=== PATIENT | female | born 1985 | race American Indian/Alaskan Native ===

== ENCOUNTER 2017-01-04 14:32 | Outpatient (CLI) | payer MEDICAID ==
[2017-01-04 16:15] LABS: Bacteria,Urine 1+ /HPF (Negative); Bilirubin,Urine NEG (Negative); Blood,Urine NEG (Negative); Ketones,Urine NEG (Negative); Leukocyte Esterase,Urine MOD (Negative); Mucus,Urine FEW /HPF; Nitrite,Urine NEG (Negative); Protein,Urine <15 mg/dL mg/dL (Negative); Urobilinogen,Urine < 2.0 mg/dL (<2.0)
[2017-01-04 17:12] LABS: Hemoglobin 10.3 gm/dl (10.1-14.3); Mean Corpuscular HGB Conc 34 % (30-34); Mean Corpuscular Hemoglobin 31 pg (28-32); Mean Corpuscular Volume 90 fl (79-97); Platelet Count 174 K/mm3 (140-440); Red Blood Count 3.32 M/mm3 (3.65-5.03); Red Cell Distribution Width 14.2 % (13.2-15.2); White Blood Count 8.8 K/mm3 (4.5-11.0)
[2017-01-04 17:23] LABS: Alanine Aminotransferase 10 units/L (7-56); Lactate Dehydrogenase 156 units/L (91-180); Uric Acid 4.5 mg/dL (3.5-7.6)
[2017-01-04 17:25] VITALS: BP 108/56
== END 2017-01-04 17:47 | disposition home or self-care (01) ==
LOC: TRG 14:32
PROVIDERS: ATTEND Obstetrics & Gynecology
DX: O47.03 False labor before 37 completed weeks of gestation, third trimester (principal); Z3A.36 36 weeks gestation of pregnancy
CPT/HCPCS: 36415; 59025; 81001; 82565; 83615; 84450; 84460; 84550; 85027

== ENCOUNTER 2017-02-13 04:35 | Inpatient (IN) | payer MEDICAID ==
--- NOTE | 2017-02-13 05:11 | History and Physical Report ---
History of Present Illness Date of examination: 02/13/17 Date of admission: 02/13/17 05:06 History of present illness: Presents to labor and delivery with c/o regular contraction initial cervical exam was 4 cm per RN Menstrual History Regularity: regular Menses every: 28 days Duration: 5 LMP: 05/06/2016 LMP reliability: definite LMP character: normal test type: urine test Date: 09/15/2016 BC at conception: none Planned ? yes EDC Calculations LMP: 02/10/2017 EDC Confirmation: 02/10/2017 Past History : 4 Term Births: 3 Premature Births: 0 Living Children: 3 Para: 3 Mult. Births: 0 Prev : 0 Prev. attempt? 0 Aborta: 0 Elect. Ab: 0 Spont. Ab: 0 Ectopics: 0 # 1 Delivery date: 2005 Weeks Gestation: term labor: no Delivery type: Anesthesia type: none Delivery location: [facility] Infant Sex: Male weight: 8#1 # 2 Delivery date: 2007 Weeks Gestation: term labor: no Delivery type: Anesthesia type: none Delivery location: [facility] Sex: Male weight: 7#1 # 3 Delivery date: 2008 Weeks Gestation: term labor: no Delivery type: Anesthesia type: none Delivery location: [facility] Infant Sex: Male weight: 6#0 Past Medical History: Negative Past Medical History Past Surgical History: negative Past Medical History Anesthesia Complications: negative Anemia: negative Autoimmune Disorder: negative Bleeding Disorder: negative Blood Transfusions: negative Breast Disease: negative Diabetes: negative Heart Disease: negative Hypertension: negative Hepatitis/Liver Disease: negative Kidney Disease/UTI: negative Neurologic/Epilepsy/Migraines: negative Phlebitis/Varicosities: negative Psychiatric: negative Pulmonary Disease/Asthma: negative Thyroid Disease: negative Hospitalizations: negative Surgery (Non-herbologist): negative Abnormal PAP: positive, >3 years ago, normal since TEMO Exposure: negative Infertility: negative Uterine Anomaly: negative Uterine Surgery (not C/S): negative Other Gynecologic Problems: negative Family Hx: Mother - CHTN Infection History Hx of STD: none HIV Risk Eval: low risk Hepatitis B Risk Eval: low risk Personal hx. of genital herpes: no Partner hx. of genital herpes: no Rash, Viral, or Febrile illness since last LMP? no Varicella/Chicken Pox Status: Previous Disease TB Risk: no Genetic History Congenital Heart Defect: Mom: no Dad: no Omkar Disease: Mom: no Dad: no Thalassemia Mom: no Dad: no Neural Tube Defect Mom: no Dad: no Down's Syndrome Mom: yes Dad: no Comments: pt's nephew Britany Mom: no Dad: no Sickle Cell Disease/Trait Mom: no Dad: no Hemophilia Mom: no Dad: no Muscular Dystrophy Mom: no Dad: no Cystic Fibrosis Mom: no Dad: no Eran Chorea Mom: no Dad: no Mental Retardation Mom: no Dad: no Fragile X Mom: no Dad: no Other Genetic/Chromosomal Disorder Mom: no Dad: no Child w/other defect Mom: no Dad: no Enviromental Exposures Xray Exposure: no Medication, drug, or alcohol use since LMP: no Chemical/Other Exposure: no Exposure to Cat Liter: no Hx of Parvovirus (Fifth Disease): no Occupational Exposure to Children: none Current Allergies: No known allergies Past History Past Medical History: other (See HPI) Past Surgical History: other (See HPI) 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 (See HPI) Family/Genetic History: other (See HPI) Social history: denies: other (See HPI) - Obstetrical History Expected Date of Delivery: 02/10/17 Actual Gestation: 40 Week(s) 3 Day(s) : 4 Para: 3 Hx # Term Pregnancies: 3 Number of Pregnancies: 0 Spontaneous Abortions: 0 Induced : 0 Number of Living Children: 3 Medications and Allergies Allergies Allergy/AdvReac Type Severity Reaction Status Date / Time shellfish derived AdvReac Swelling Verified 09/18/14 08:43 Home Medications Medication Instructions Recorded Confirmed Last Taken Type Cephalexin [Keflex] 500 mg PO Q6H #40 capsule 09/18/14 Unknown Rx Ibuprofen [Motrin] 600 mg PO Q8H PRN #40 tablet 09/18/14 Unknown Rx - Vital Signs Vital signs: Vital Signs Pulse BP 80 131/83 02/13/17 04:51 02/13/17 04:51 Temp Pulse Resp BP Pulse Ox 80 131/83 02/13/17 04:51 02/13/17 04:51 - Physical Exam Breasts: Positive: deferred Cardiovascular: Regular rate Abdomen: Positive: normal appearance Genitourinary (Female): Positive: normal external genitalia - Obstetrical FHR: category 1 Uterine Tone Measurement Phase: Contraction Uterine Contraction Intensity: Moderate Results All other labs normal. Assessment and Plan - Patient Problems (1) Active labor at term Current Visit: Yes Status: Acute Plan to address problem: Admit follow L&D protocol possible augmentation of labor. (2) 40 weeks gestation of Current Visit: Yes Status: Acute
[2017-02-13] MEDS ORDERED: LACTATED RINGERS 1,000 ML ONE (06:18)
[2017-02-13] MEDS ORDERED: STADOL ONE (06:20)
[2017-02-13] MEDS ORDERED: BRETHINE SUB-Q PRN ×2 (08:20→14:15)
[2017-02-13] MEDS ORDERED: XYLOCAINE 2% INFILTRATI ONE ×3 (08:20→14:15)
[2017-02-13] MEDS ORDERED: BRETHINE IVP PRN ×2 (08:20→14:15)
[2017-02-13] MEDS ORDERED: MINERAL OIL PO PRN ×2 (08:20→22:00)
[2017-02-13] MEDS ORDERED: ePHEDrine SULFATE IV PRN ×2 (08:20→14:15)
[2017-02-13] MEDS ORDERED: SUBLIMAZE IV PRN (08:20)
--- NOTE | 2017-02-13 08:33 | Progress Note ---
Assessment and Plan - Patient Problems (1) 40 weeks gestation of Current Visit: Yes Status: Acute (2) Active labor at term Current Visit: Yes Status: Acute Plan to address problem: -s/p SROM -anticipate Subjective - Subjective Date of service: 02/13/17 Principal diagnosis: 40 3/7 active labor Interval history: AROM done with clear fluid noted cx /-1. Pt tolerated procedure well. Declines epidural at this time but states pain is controlled with pain meds. Patient reports: movement normal, contractions, no new complaints, no loss of fluid Objective - Vital Signs Vital Signs: Vital Signs - 12hr 02/13/17 02/13/17 02/13/17 04:51 05:26 05:31 Temperature Pulse Rate 80 76 68 Pulse Rate [ Left From Monitor] Respiratory Rate Blood Pressure 131/83 Blood Pressure [Right Arm] O2 Sat by Pulse 99 100 Oximetry 02/13/17 02/13/17 02/13/17 05:36 05:41 05:46 Temperature Pulse Rate 76 68 70 Pulse Rate [ Left From Monitor] Respiratory Rate Blood Pressure Blood Pressure [Right Arm] O2 Sat by Pulse 100 100 99 Oximetry 02/13/17 02/13/17 02/13/17 05:51 05:56 06:01 Temperature Pulse Rate 65 80 73 Pulse Rate [ Left From Monitor] Respiratory Rate Blood Pressure Blood Pressure [Right Arm] O2 Sat by Pulse 100 100 100 Oximetry 02/13/17 02/13/17 02/13/17 06:06 06:11 06:16 Temperature Pulse Rate 76 73 72 Pulse Rate [ Left From Monitor] Respiratory Rate Blood Pressure Blood Pressure [Right Arm] O2 Sat by Pulse 99 100 99 Oximetry 02/13/17 02/13/17 02/13/17 06:21 06:26 06:28 Temperature Pulse Rate 70 83 77 Pulse Rate [ Left From Monitor] Respiratory Rate Blood Pressure Blood Pressure [Right Arm] O2 Sat by Pulse 100 100 88 Oximetry 02/13/17 02/13/17 02/13/17 06:31 06:34 06:36 Temperature Pulse Rate 80 78 Pulse Rate [ Left From Monitor] Respiratory 18 Rate Blood Pressure Blood Pressure [Right Arm] O2 Sat by Pulse 99 99 Oximetry 02/13/17 02/13/17 02/13/17 06:41 06:44 06:45 Temperature 97.7 F Pulse Rate 67 77 Pulse Rate [ 68 Left From Monitor] Respiratory 18 Rate Blood Pressure 110/63 Blood Pressure 110/63 [Right Arm] O2 Sat by Pulse 96 96 Oximetry 02/13/17 02/13/17 02/13/17 06:46 06:51 06:56 Temperature Pulse Rate 63 84 63 Pulse Rate [ Left From Monitor] Respiratory Rate Blood Pressure Blood Pressure [Right Arm] O2 Sat by Pulse 96 96 97 Oximetry 02/13/17 02/13/17 02/13/17 07:01 07:06 07:10 Temperature Pulse Rate 78 59 L 68 Pulse Rate [ Left From Monitor] Respiratory Rate Blood Pressure Blood Pressure [Right Arm] O2 Sat by Pulse 96 96 94 Oximetry 02/13/17 02/13/17 02/13/17 07:11 07:16 07:21 Temperature Pulse Rate 57 L 61 63 Pulse Rate [ Left From Monitor] Respiratory Rate Blood Pressure Blood Pressure [Right Arm] O2 Sat by Pulse 96 96 96 Oximetry 02/13/17 02/13/17 02/13/17 07:26 07:31 07:36 Temperature Pulse Rate 61 70 85 Pulse Rate [ Left From Monitor] Respiratory Rate Blood Pressure Blood Pressure [Right Arm] O2 Sat by Pulse 96 96 98 Oximetry 02/13/17 02/13/17 02/13/17 07:39 07:41 07:46 Temperature Pulse Rate 61 59 L 58 L Pulse Rate [ Left From Monitor] Respiratory Rate Blood Pressure Blood Pressure [Right Arm] O2 Sat by Pulse 94 95 97 Oximetry 02/13/17 02/13/17 02/13/17 07:51 07:56 08:00 Temperature 97.9 F Pulse Rate 66 65 Pulse Rate [ 65 Left From Monitor] Respiratory 18 Rate Blood Pressure Blood Pressure 110/63 [Right Arm] O2 Sat by Pulse 96 98 98 Oximetry 02/13/17 02/13/17 02/13/17 08:01 08:06 08:11 Temperature Pulse Rate 67 72 92 H Pulse Rate [ Left From Monitor] Respiratory Rate Blood Pressure Blood Pressure [Right Arm] O2 Sat by Pulse 96 98 98 Oximetry 02/13/17 02/13/17 02/13/17 08:16 08:21 08:25 Temperature Pulse Rate 62 104 H 82 Pulse Rate [ Left From Monitor] Respiratory Rate Blood Pressure Blood Pressure [Right Arm] O2 Sat by Pulse 99 98 88 Oximetry 02/13/17 08:26 Temperature Pulse Rate 82 Pulse Rate [ Left From Monitor] Respiratory Rate Blood Pressure Blood Pressure [Right Arm] O2 Sat by Pulse 98 Oximetry - Exam Cardiovascular: Normal S1, Normal S2 Lungs: Clear to auscultation Abdomen: Present: normal appearance, soft FHR: category 1 Cervical Dilatation: 7.5 (AROM clear fluid) Cervical Effacement Percentage: 90 station: -1 Uterine Contraction Pattern: Regular Uterine Tone Measurement Phase: Resting Uterine Contraction Intensity: Moderate Deep Tendon Reflex Grade: Normal +2
[2017-02-13] MEDS ORDERED: PITOCin/NS 30 UNIT/500ML 30 UNITS/500 ML BAG IV SCH (09:00)
[2017-02-13] MEDS ORDERED: PITOCin/NS 20 UNIT/1000ML DRIP 20 UNITS/1,000 ML BAG IV SCH ×2 (09:00→14:15)
[2017-02-13] MEDS ORDERED: LACTATED RINGERS 1,000 ML IV SCH ×2 (09:00→14:15)
[2017-02-13] MEDS: PITOCin/NS 30 UNIT/500ML 30 UNITS/500 ML BAG IV SCH ×2 (09:30→10:07)
[2017-02-13 10:19] LABS: Hematocrit 32.3 % (30.3-42.9); Hemoglobin 10.8 gm/dl (10.1-14.3); Mean Corpuscular HGB Conc 34 % (30-34); Mean Corpuscular Hemoglobin 30 pg (28-32); Mean Corpuscular Volume 90 fl (79-97); Platelet Count 202 K/mm3 (140-440); Red Blood Count 3.61 M/mm3 (3.65-5.03); Red Cell Distribution Width 14.2 % (13.2-15.2); White Blood Count 7.6 K/mm3 (4.5-11.0)
[2017-02-13] MEDS ORDERED: DULCOLAX PR PRN (12:07)
[2017-02-13] MEDS ORDERED: PHENERGAN PR PRN (12:07)
[2017-02-13] MEDS ORDERED: BENADRYL PO PRN (12:07)
[2017-02-13] MEDS ORDERED: DERMOPLAST TP PRN (12:07)
[2017-02-13] MEDS ORDERED: PHENERGAN PO PRN ×2 (12:07→14:15)
[2017-02-13] MEDS ORDERED: TUCKS PAD TP PRN (12:07)
[2017-02-13] MEDS ORDERED: LANSINOH TP PRN (12:07)
[2017-02-13] MEDS ORDERED: MILK OF MAGNESIA PO PRN (12:07)
[2017-02-13] MEDS ORDERED: ZOFRAN IV PRN (12:07)
[2017-02-13] MEDS ORDERED: TYLENOL PO PRN (12:07)
--- NOTE | 2017-02-13 12:20 | Procedure Note ---
OB Delivery Note - Delivery Date of Delivery: 02/13/17 Surgeon: DONYA PATINO Estimated blood loss: 200cc - Vaginal Delivery presentation: vertex Delivery position: OA Intrapartum events: none Delivery induction: none Delivery augmentation: rupture of membranes, pitocin Delivery monitor: external FHT, external uterine Route of delivery: Delivery placenta: spontaneous Delivery cord: nuchal cord (times one easily reduced) Delivery laceration: 2nd degree (periurethral, and perineal) Anesthesia: local Delivery comments: Delivery as above.Ant shoulder delivered with nuchal cord noted and it was reduced with delivery of rest of body as patient could not stop pushing due to pain. Cord was clamped x 2 and cut x1. Cord blood was collected. take to warmer as per pt request to be cleaned first so skin to skin was not done. placenta delivered spontaneously intact. B/L periurethral lacs were noted and repaired in usual fashion under local anesthesia. perineal lac noted but was hemostatic and not repaired. Mother and stable in LDR. - A at 1 minute: 8 at 5 minutes: 9 Infant Gender: Male (7lbs 10oz)
[2017-02-13] MEDS: MOTRIN PO SCH ×2 (12:25→18:18)
[2017-02-13] MEDS ORDERED: SODIUM CHLORIDE FLUSH SYRINGE 10 ML IV NR (13:00)
[2017-02-13] MEDS ORDERED: STADOL IV PRN (14:15)
[2017-02-13] MEDS: NORCO 5/325 PO PRN ×2 (14:26→21:41)
[2017-02-13 15:25] LABS: Hematocrit 32.3 % (30.3-42.9); Hemoglobin 10.9 gm/dl (10.1-14.3); Mean Corpuscular HGB Conc 34 % (30-34); Mean Corpuscular Hemoglobin 30 pg (28-32); Mean Corpuscular Volume 89 fl (79-97); Platelet Count 208 K/mm3 (140-440); Red Blood Count 3.62 M/mm3 (3.65-5.03); Red Cell Distribution Width 13.9 % (13.2-15.2); White Blood Count 13.4 K/mm3 (4.5-11.0)
[2017-02-14 00:57] LABS: Hematocrit 27.9 % (30.3-42.9); Hemoglobin 9.4 gm/dl (10.1-14.3)
[2017-02-14] MEDS ORDERED: BOOSTRIX IM ONE (06:30)
[2017-02-14] MEDS: MOTRIN PO SCH ×2 (08:10→13:36)
--- NOTE | 2017-02-14 10:01 | Progress Note ---
Assessment and Plan - Patient Problems (1) Normal delivery Current Visit: Yes Status: Acute Plan to address problem: -routine pp care -d/c home in the am Subjective - Subjective Date of service: 02/14/17 Principal diagnosis: PPD#1 s/p Interval history: Pt doing well and is attempting breast feeding which she did not do with the rest of the children.She is excited. Pt desires to go home on tomorrow instead of today. She otherwise has no c/o today. Patient reports: appetite normal, voiding normally, pain well controlled [place]: doing well, nursing well Objective - Vital Signs Latest vital signs: Vital Signs Temp Pulse Pulse Resp BP BP Pulse Ox 02/14/17 00:00 98.5 F 72 18 116/67 02/13/17 20:25 98.3 F 57 L 19 124/60 02/13/17 15:10 98.5 F 69 20 123/75 02/13/17 14:05 99.5 F 72 18 129/72 02/13/17 12:55 82 82 18 131/78 131/78 02/13/17 12:40 83 83 18 132/78 132/78 02/13/17 12:25 88 88 18 132/79 132/79 02/13/17 12:10 79 79 18 128/71 128/71 02/13/17 11:55 98.2 F 86 86 20 137/73 137/73 02/13/17 11:11 76 98 02/13/17 11:08 72 142/70 02/13/17 11:06 69 98 02/13/17 11:01 81 98 02/13/17 10:56 71 97 02/13/17 10:51 74 99 02/13/17 10:49 81 89 02/13/17 10:46 84 100 02/13/17 10:41 79 99 02/13/17 10:38 63 144/66 02/13/17 10:36 77 99 02/13/17 10:31 80 99 02/13/17 10:26 67 97 02/13/17 10:21 87 98 02/13/17 10:16 90 100 02/13/17 10:11 79 98 02/13/17 10:07 77 119/71 02/13/17 10:06 71 99 02/13/17 10:04 22 02/13/17 10:01 71 99 Intake and Output 02/13/17 02/14/17 02/14/17 22:59 06:59 14:59 Intake Total 960 Output Total 1100 Balance -140 Intake: Oral 960 Output: Urine 1100 Void 1100 Other: Total, Intake Amount 240 Total, Output Amount 600 - Exam Breasts: Present: normal Cardiovascular: Present: Normal S1, Normal S2 Lungs: Present: Clear to auscultation, Normal air movement Abdomen: Present: normal appearance, soft. Absent: distention, tenderness, guarding Uterus: Present: normal, firm, fundal height below umbilicus. Absent: bogginess Extremities: Present: normal Deep Tendon Reflex Grade: Normal +2 - Labs Labs: Abnormal lab results 02/13/17 02/13/17 02/14/17 Range/Units 09:05 15:00 00:20 WBC 13.4 H (4.5-11.0) K/mm3 RBC 3.61 L 3.62 L (3.65-5.03) M/mm3 Hgb 9.4 L (10.1-14.3) gm/dl Hct 27.9 L (30.3-42.9) %
[2017-02-14] MEDS ORDERED: FLUARIX QUAD 2016-2017(36 MOS+) IM ONE (12:00)
--- NOTE | 2017-02-14 14:36 | Discharge Summary ---
Providers - Providers Date of Admission: 02/13/17 05:06 Date of discharge: 02/14/17 (pt now wants d/c home today) Attending physician: JEREMY ECHEVERRIA Primary care physician: JEREMY ECHEVERRIA Hospitalization Reason for admission: active labor Delivery: Episiotomy: none Laceration: 2nd degree Other procedures: none complications: none Discharge diagnosis: IUP at term delivered [place] baby: male Hospital course: Pt s/p that was not complicated. She had routine pp care and desires d/c home today on PPD#1. Condition at discharge: Good Disposition: DISCHARGED TO HOME OR SELFCARE - Discharge Diagnoses (1) Normal delivery Status: Acute Plan - Discharge Medications Prescriptions: Lidocain2.5%/Prilocai2.5% [Emla] 5 gm TP ONCE #1 tube - Provider Discharge Summary Additional instructions: [] Smoking cessation referral if applicable(refer to patient education folder for contact #) [] Refer to [facility]'s [facility] Booklet Call your doctor immediately for: * Fever > 100.5 * Heavy vaginal bleeding ( >1 pad per hour) * Severe persistent headache * Shortness of breath * Reddened, hot, painful area to leg or breast * Drainage or odor from incision. * Keep incision clean and dry at all times and follow doctor's instructions regarding bathing/showering - Follow up plan Follow up: JEREMY ECHEVERRIA MD [Primary Care Provider] - 7 Days
[2017-02-14 17:26] VITALS: BP 112/70
== END 2017-02-14 16:30 | disposition home or self-care (01) | DRG 775 ==
LOC: TRG 04:35 → LD 05:06 → OB 14:00
PROVIDERS: ADMIT Obstetrics & Gynecology; ATTEND Obstetrics & Gynecology
PROC: 10E0XZZ Delivery of Products of Conception, External Approach (ICD-10-PCS; principal; 2017-02-13)
PROC: 0KQM0ZZ Repair Perineum Muscle, Open Approach (ICD-10-PCS; 2017-02-13)
DX: O69.81X0 Labor and delivery complicated by cord around neck, without compression, not applicable or unspecified (principal); O70.1 Second degree perineal laceration during delivery; Z3A.40 40 weeks gestation of pregnancy; Z37.0 Single live birth; Z91.013 Allergy to seafood
CPT/HCPCS: 36415; 85014; 85018; 85027; 86592; 86850; 86900; 86901; 88307; 90715; J0595; J2590; J3010; J7120

== ENCOUNTER 2017-07-26 14:05 | Emergency (ER) | payer SELFPAY ==
[2017-07-26] MEDS ORDERED: TYLENOL ONE (14:44)
[2017-07-26] MEDS ORDERED: TYLENOL PO ONE (14:56)
[2017-07-26] MEDS ORDERED: ZOFRAN ODT PO ONE (20:29)
[2017-07-26] MEDS ORDERED: NORCO 5/325 PO ONE (20:29)
[2017-07-26 20:52] LABS: Hematocrit 36.7 % (30.3-42.9); Hemoglobin 12.4 gm/dl (10.1-14.3); Mean Corpuscular HGB Conc 34 % (30-34); Mean Corpuscular Hemoglobin 29 pg (28-32); Mean Corpuscular Volume 86 fl (79-97); Platelet Count 208 K/mm3 (140-440); Red Blood Count 4.25 M/mm3 (3.65-5.03); Red Cell Distribution Width 13.5 % (13.2-15.2)
[2017-07-26 20:57] LABS: Anion Gap 18 mmol/L; BUN/Creatinine Ratio 16; Blood Urea Nitrogen 14 mg/dL (7-17); Calcium 9.4 mg/dL (8.4-10.2); Carbon Dioxide 24 mmol/L (22-30); Chloride 98.7 mmol/L (98-107); Glucose 148 mg/dL (65-100); Sodium 137 mmol/L (137-145)
[2017-07-26 21:29] LABS: Albumin 3.9 g/dL (3.9-5); Albumin/Globulin Ratio 1.2 %; Bilirubin,Direct 0.2 mg/dL (0-0.2); Bilirubin,Indirect 0.6 mg/dL; Bilirubin,Total 0.8 mg/dL (0.1-1.2); Total Protein 7.1 g/dL (6.3-8.2)
[2017-07-26] MEDS ORDERED: TORADOL IV ONE (21:31)
[2017-07-26 21:44] LABS: Bilirubin,Urine NEG (Negative); Blood,Urine SM (Negative); Ketones,Urine TR mg/dL (Negative); Leukocyte Esterase,Urine LG (Negative); Mucus,Urine FEW /HPF; Nitrite,Urine NEG (Negative)
[2017-07-26 21:46] LABS: WBC,Urine > 182.0 /HPF (0.0-6.0)
--- NOTE | 2017-07-26 22:51 | XRay Report ---
FINAL REPORT PROCEDURE: XR CHEST ROUTINE 2V TECHNIQUE: PA and lateral chest radiographs were obtained. CPT 86028 HISTORY: fever, bodyaches COMPARISON: No prior studies are available for comparison. FINDINGS: Heart: Normal. Mediastinum/Vessels: Normal. Lungs/Pleural space: Normal. Bony thorax: No acute osseous abnormality. Other: IMPRESSION: Normal examination.
--- NOTE | 2017-07-26 23:21 | Cat Scan Report ---
FINAL REPORT PROCEDURE: CT ABDOMEN PELVIS W CON TECHNIQUE: Computerized axial tomography of the abdomen and pelvis was performed after the IV injection of iodinated nonionic contrast. HISTORY: fever, abd tenderness COMPARISON: No prior studies are available for comparison. FINDINGS: Visualized lower thorax: No significant abnormality. Liver: Normal size and attenuation. There is a 5 millimeters cyst in the right lobe of the liver. Spleen: Normal size and attenuation. Gallbladder and biliary system: Normal. Pancreas: Normal. Adrenals: Normal. Kidneys: There is a 2.7 centimeter masslike area in the midpole of the right kidney. This is most likely focal pyelonephritis. There is right perinephric induration. There are no kidney stones. There is no hydronephrosis.. GI tract: There is no bowel obstruction, colitis or enteritis. The appendix is normal.. Lymph nodes and mesentery: Normal. Vasculature: Normal. Bladder: Normal. Reproductive organs: Normal. Peritoneum: There is free pelvic fluid which is nonspecific. There is no free air. There is no abscess.. Musculoskeletal structures: No significant abnormality. Other: None. IMPRESSION: There is a 2.7 centimeter masslike area in the midpole of the right kidney. This is most likely focal pyelonephritis. There is right perinephric induration. There are no kidney stones. There is no hydronephrosis.. There is no bowel obstruction, colitis or enteritis. The appendix is normal.. There is free pelvic fluid which is nonspecific. There is no free air. There is no abscess..
[2017-07-26] MEDS ORDERED: ROCEPHIN/NS 1 GM/50 ML 1 GM/50 ML BAG IV ONE (23:32)
--- NOTE | 2017-07-27 00:42 | Emergency Department Report ---
ED N/V/D HPI - General Chief complaint: Abdominal Pain Stated complaint: FLU LIKE SYMPTOMS Source: patient Mode of arrival: Ambulatory Limitations: No Limitations - History of Present Illness Initial comments: 32 year old female presents to ED with bodyaches, fever, N/V/D and abdominal pain/flank pain. patient is neurologically intact and in no acute distress. patient is tolerating PO and has no active vomiting. MD complaint: vomiting, diarrhea, abdominal pain -: Sudden (2 days) Description of Vomiting: food contents Description of Diarrhea: water Associated Abdominal Pain: Yes Location: LLQ, flank Severity: mild Quality: aching, sharp Consistency: constant Improves with: medication Worsens with: eating Associated Symptoms: myalgias, fever/chills, loss of appetite, nausea/vomiting. denies: chest pain, cough, diaphoresis, headaches, malaise, rash, dysuria, shortness of breath, syncope, weakness - Related Data Previous Rx's Medication Instructions Recorded Last Taken Type Lidocain2.5%/Prilocai2.5% [Emla] 5 gm TP ONCE #1 tube 02/13/17 Unknown Rx Ciprofloxacin HCl [Ciprofloxacin 500 mg PO Q12H #20 tab 07/27/17 Unknown Rx TAB] Meloxicam 7.5 mg PO QAM #7 tablet 07/27/17 Unknown Rx Ondansetron [Zofran Odt] 4 mg PO Q8H #12 tab.rapdis 07/27/17 Unknown Rx Allergies Allergy/AdvReac Type Severity Reaction Status Date / Time shellfish derived AdvReac Swelling Verified 09/18/14 08:43 ED Review of Systems ROS: Stated complaint: FLU LIKE SYMPTOMS Other details as noted in HPI Constitutional: denies: chills, fever Eyes: denies: eye pain, eye discharge, vision change ENT: denies: ear pain, throat pain Respiratory: denies: cough, shortness of breath, wheezing Cardiovascular: denies: chest pain, palpitations Endocrine: no symptoms reported Gastrointestinal: abdominal pain, nausea, vomiting, diarrhea Genitourinary: denies: urgency, dysuria, frequency, hematuria, discharge Musculoskeletal: back pain. denies: joint swelling, arthralgia Skin: denies: rash, lesions Neurological: denies: headache, weakness, numbness, paresthesias, confusion, abnormal gait, vertigo Psychiatric: denies: anxiety, depression Hematological/Lymphatic: denies: easy bleeding, easy bruising ED Past Medical Hx - Past Medical History Previous Medical History?: Yes Hx Hypertension: No Hx Congestive Heart Failure: No Hx Diabetes: No Hx Deep Vein Thrombosis: No Hx Renal Disease: No Hx Sickle Cell Disease: No Hx Seizures: No Hx Asthma: Yes (CARRIES INHALER) Hx COPD: No Hx HIV: No - Surgical History Past Surgical History?: No - Social History Smoking Status: Never Smoker - Medications Home Medications: Home Medications Medication Instructions Recorded Confirmed Last Taken Type Lidocain2.5%/Prilocai2.5% [Emla] 5 gm TP ONCE #1 tube 02/13/17 Unknown Rx Ciprofloxacin HCl [Ciprofloxacin 500 mg PO Q12H #20 tab 07/27/17 Unknown Rx TAB] Meloxicam 7.5 mg PO QAM #7 tablet 07/27/17 Unknown Rx Ondansetron [Zofran Odt] 4 mg PO Q8H #12 tab.rapdis 07/27/17 Unknown Rx ED Physical Exam - General Limitations: No Limitations General appearance: alert, in no apparent distress - Head Head exam: Present: atraumatic, normocephalic - Eye Eye exam: Present: normal appearance - ENT ENT exam: Present: mucous membranes moist - Neck Neck exam: Present: normal inspection, full ROM. Absent: tenderness - Respiratory Respiratory exam: Present: normal lung sounds bilaterally. Absent: respiratory distress, wheezes, chest wall tenderness - Cardiovascular Cardiovascular Exam: Present: regular rate, normal rhythm. Absent: systolic murmur, diastolic murmur, rubs, gallop - GI/Abdominal GI/Abdominal exam: Present: soft, tenderness (mild LLQ pain), normal bowel sounds. Absent: distended, guarding, rebound - Extremities Exam Extremities exam: Present: normal inspection, full ROM - Back Exam Back exam: Present: normal inspection, CVA tenderness (R), CVA tenderness (L) - Neurological Exam Neurological exam: Present: alert, oriented X3, normal gait - Psychiatric Psychiatric exam: Present: normal affect, normal mood - Skin Skin exam: Present: warm, dry, intact, normal color. Absent: rash ED Course Vital Signs 07/26/17 07/26/17 07/26/17 14:50 20:50 23:57 Temperature 100.4 F H Pulse Rate 100 H Respiratory 18 18 18 Rate Blood Pressure 117/73 Blood Pressure [Left] O2 Sat by Pulse 100 100 Oximetry 07/27/17 07/27/17 07/27/17 00:52 01:57 02:51 Temperature 100.8 F H 100.2 F H 101.8 F H Pulse Rate 102 H 96 H 100 H Respiratory 20 20 20 Rate Blood Pressure Blood Pressure 140/95 131/78 [Left] O2 Sat by Pulse 100 100 98 Oximetry 07/27/17 07/27/17 07/27/17 03:05 04:15 04:20 Temperature 99.4 F Pulse Rate 90 Respiratory 18 Rate Blood Pressure Blood Pressure [Left] O2 Sat by Pulse Oximetry ED Medical Decision Making - Lab Data Result diagrams: 07/26/17 20:19 07/26/17 20:19 Abnormal Lab Results 07/26/17 07/26/17 07/26/17 20:07 20:19 20:19 WBC 13.0 H RBC 4.25 Hgb 12.4 Hct 36.7 MCV 86 MCH 29 MCHC 34 RDW 13.5 Plt Count 208 Sodium 137 Potassium 4.0 Chloride 98.7 Carbon Dioxide 24 Anion Gap 18 BUN 14 Creatinine 0.9 Estimated GFR > 60 BUN/Creatinine Ratio 16 Glucose 148 H Lactic Acid Calcium 9.4 Total Bilirubin Direct Bilirubin Indirect Bilirubin AST ALT Alkaline Phosphatase C-Reactive Protein Total Protein Albumin Albumin/Globulin Ratio Lipase HCG, Qual Urine Color Yellow Urine Turbidity Clear Urine pH 5.0 Ur Specific [place] 1.025 Urine Protein 100 mg/dl Urine Glucose (UA) Neg Urine Ketones Tr Urine Blood Sm Urine Nitrite Neg Urine Bilirubin Neg Urine Urobilinogen 2.0 Ur Leukocyte Esterase Lg Urine WBC (Auto) > 182.0 H Urine RBC (Auto) 10.0 U Epithel Cells (Auto) 40.0 H Urine WBC Clumps 1+ Ur Transition Epith Cell 4 Urine Mucus Few Urine HCG, Qual Negative 07/26/17 07/26/17 07/26/17 20:19 20:19 20:19 WBC RBC Hgb Hct MCV MCH MCHC RDW Plt Count Sodium Potassium Chloride Carbon Dioxide Anion Gap BUN Creatinine Estimated GFR BUN/Creatinine Ratio Glucose Lactic Acid 1.40 Calcium Total Bilirubin Direct Bilirubin Indirect Bilirubin AST ALT Alkaline Phosphatase C-Reactive Protein 23.00 H Total Protein Albumin Albumin/Globulin Ratio Lipase HCG, Qual Negative Urine Color Urine Turbidity Urine pH Ur Specific Culver Urine Protein Urine Glucose (UA) Urine Ketones Urine Blood Urine Nitrite Urine Bilirubin Urine Urobilinogen Ur Leukocyte Esterase Urine WBC (Auto) Urine RBC (Auto) U Epithel Cells (Auto) Urine WBC Clumps Ur Transition Epith Cell Urine Mucus Urine HCG, Qual 07/26/17 20:19 WBC RBC Hgb Hct MCV MCH MCHC RDW Plt Count Sodium Potassium Chloride Carbon Dioxide Anion Gap BUN Creatinine Estimated GFR BUN/Creatinine Ratio Glucose Lactic Acid Calcium Total Bilirubin 0.80 Direct Bilirubin 0.2 Indirect Bilirubin 0.6 AST 12 ALT 11 Alkaline Phosphatase 72 C-Reactive Protein Total Protein 7.1 Albumin 3.9 Albumin/Globulin Ratio 1.2 Lipase 19 HCG, Qual Urine Color Urine Turbidity Urine pH Ur Specific Culver Urine Protein Urine Glucose (UA) Urine Ketones Urine Blood Urine Nitrite Urine Bilirubin Urine Urobilinogen Ur Leukocyte Esterase Urine WBC (Auto) Urine RBC (Auto) U Epithel Cells (Auto) Urine WBC Clumps Ur Transition Epith Cell Urine Mucus Urine HCG, Qual negative flu testing - Radiology Data Radiology results: report reviewed Xr chest Normal examination CT abdomen/pelvis 2.7cm masslike area in the midpole of the right kidney which is most likely focal pyelonephritis. There are no kidney stones, there is no hydronephrosis. Appendix is normal. There is no bowel obstruction, colitis or enteritis. - Medical Decision Making 32 year old female presents to ED with bodyaches, fever, vomiting and diarrhea and abd/flank pain x2 days. patient denies dysuria, hematuria, vaginal bleeding or vaginal discharge. patient has negative preg test during ED visit. patient has CT scan positive for acute pyelonephritis. patient has normal BUN/creatnine , normal lactic acid and is tolerating PO fluids. patient is afebrile upon discharge, normal HR and has had no episodes of vomiting during ED visit. patient has received IV abx and 2L of normal saline IV during ED visit. patient pain is well controlled and resolved prior to discharge. patient agrees and understands to follow up with PCP or urology within 24 hours. patient is stable, neurologically intact, in no acute distress and non toxic appearing. patient agrees and understands to return to ED if symptoms worsen or fever is uncontrolled. Critical care attestation.: If time is entered above; I have spent that time in minutes in the direct care of this critically ill patient, excluding procedure time. ED Disposition Clinical Impression: Pyelonephritis UTI (urinary tract infection) Qualifiers: Urinary tract infection type: acute cystitis Hematuria presence: without hematuria Qualified Code(s): N30.00 - Acute cystitis without hematuria Disposition: DC- TO HOME OR SELFCARE Is pt being admited?: No Does the pt Need Aspirin: No Condition: Stable Instructions: Urinary Tract Infection in Women (ED), Acute Pyelonephritis (ED) Additional Instructions: Please continue to take rotate tylenol and motrin for fever. please return to ED immediately if fever is uncontrolled or if symptoms worsen. Prescriptions: Ciprofloxacin HCl [Ciprofloxacin TAB] 500 mg PO Q12H #20 tab Meloxicam 7.5 mg PO QAM #7 tablet Ondansetron [Zofran Odt] 4 mg PO Q8H #12 tab.rapdis Referrals: RICKY HUSSEIN MD [Referring] - 24 Hours LINDA CHAMPION MD [Referring] - 24 Hours PRIMARY CARE, [Primary Care Provider] - 24 Hours Forms: Work/School Release Form(ED)
[2017-07-27] MEDS ORDERED: MORPHINE IV ONE (00:45)
[2017-07-27] MEDS ORDERED: ZOFRAN IV ONE (00:45)
[2017-07-27] MEDS ORDERED: NACL 0.9% 1000 ML 1,000 ML IV ONE ×2 (00:53→02:57)
[2017-07-27] MEDS ORDERED: MOTRIN PO ONE (00:54)
[2017-07-27 01:58] VITALS: BP 131/78
[2017-07-27] MEDS ORDERED: TYLENOL PO ONE (02:57)
== END 2017-07-27 04:40 | disposition home or self-care (01) ==
LOC: ED 14:05
DX: N12 Tubulo-interstitial nephritis, not specified as acute or chronic (principal); N39.0 Urinary tract infection, site not specified; Z91.013 Allergy to seafood
CPT/HCPCS: 36415; 71020; 74177; 80048; 80074; 81001; 81025; 82140; 83690; 84703; 85027; 86140; 87400; 96361; 96365; 96375; 99285; J0696; J1885; J2270; J2405; J7030; Q9967; Q0162

== ENCOUNTER 2018-03-01 04:53 | Emergency (ER) | payer SELFPAY ==
[2018-03-01 04:59] VITALS: BP 158/96
[2018-03-01 05:44] LABS: Basophils % (Auto) 0.2 % (0.0-1.8); Eosinophils % (Auto) 0.5 % (0.0-4.3); Hematocrit 34.9 % (30.3-42.9); Hemoglobin 11.9 gm/dl (10.1-14.3); Lymphocytes # (Auto) 1.4 K/mm3 (1.2-5.4); Lymphocytes % (Auto) 15.8 % (13.4-35.0); Mean Corpuscular HGB Conc 34 % (30-34); Mean Corpuscular Hemoglobin 30 pg (28-32); Mean Corpuscular Volume 87 fl (79-97); Monocytes # (Auto) 0.2 K/mm3 (0.0-0.8); Monocytes % (Auto) 2.7 % (0.0-7.3); Platelet Count 213 K/mm3 (140-440); Red Cell Distribution Width 13.7 % (13.2-15.2)
[2018-03-01 05:54] LABS: Amorphous Crystals,Urine Few; Bilirubin,Urine NEG (Negative); Blood,Urine NEG (Negative); Color,Urine Yellow (Yellow); Mucus,Urine FEW /HPF; Urobilinogen,Urine < 2.0 mg/dL (<2.0)
[2018-03-01 06:01] LABS: Alanine Aminotransferase 9 units/L (7-56); BUN/Creatinine Ratio 15; Blood Urea Nitrogen 9 mg/dL (7-17); Calcium 8.8 mg/dL (8.4-10.2); Hemolysis Index 12
[2018-03-01 06:19] LABS: HCG Qualitative,Urine Positive (Negative)
[2018-03-01] MEDS ORDERED: TYLENOL ONE (06:38)
[2018-03-01] MEDS ORDERED: TYLENOL PO ONE (06:46)
--- NOTE | 2018-03-01 07:28 | Emergency Department Report ---
ED Abdominal Pain HPI - General Chief Complaint: Abdominal Pain Stated Complaint: ABD PAIN Time Seen by Provider: 03/01/18 07:15 Source: patient Mode of arrival: Ambulatory Limitations: No Limitations - History of Present Illness Initial Comments: Patient is a 33-year-old female presenting with generalized abdominal pain for the past 3-4 days. Patient states as a crampy pain that is intermittent. Patient denies any dysuria vaginal bleeding or vaginal discharge or vomiting or diarrhea. Patient states the crampy pain is 6 out of 10. Severity scale (0 -10): 6 Quality: cramping Consistency: intermittent, colicky Improves With: nothing Worsens With: nothing - Related Data Previous Rx's Medication Instructions Recorded Last Taken Type Lidocain2.5%/Prilocai2.5% [Emla] 5 gm TP ONCE #1 tube 02/13/17 Unknown Rx Ciprofloxacin HCl [Ciprofloxacin 500 mg PO Q12H #20 tab 07/27/17 Unknown Rx TAB] Meloxicam 7.5 mg PO QAM #7 tablet 07/27/17 Unknown Rx Ondansetron [Zofran Odt] 4 mg PO Q8H #12 tab.rapdis 07/27/17 Unknown Rx Allergies Allergy/AdvReac Type Severity Reaction Status Date / Time shellfish derived AdvReac Swelling Verified 03/01/18 05:12 ED Review of Systems ROS: Stated complaint: ABD PAIN Other details as noted in HPI Comment: All other systems reviewed and negative ED Past Medical Hx - Past Medical History Hx Hypertension: No Hx Congestive Heart Failure: No Hx Diabetes: No Hx Deep Vein Thrombosis: No Hx Renal Disease: No Hx Sickle Cell Disease: No Hx Seizures: No Hx Asthma: Yes (CARRIES INHALER) Hx COPD: No Hx HIV: No - Social History Smoking Status: Never Smoker Substance Use Type: None - Medications Home Medications: Home Medications Medication Instructions Recorded Confirmed Last Taken Type Lidocain2.5%/Prilocai2.5% [Emla] 5 gm TP ONCE #1 tube 02/13/17 Unknown Rx Ciprofloxacin HCl [Ciprofloxacin 500 mg PO Q12H #20 tab 07/27/17 Unknown Rx TAB] Meloxicam 7.5 mg PO QAM #7 tablet 07/27/17 Unknown Rx Ondansetron [Zofran Odt] 4 mg PO Q8H #12 tab.rapdis 07/27/17 Unknown Rx ED Physical Exam - General Limitations: No Limitations General appearance: alert, in no apparent distress - Head Head exam: Present: atraumatic, normocephalic - Eye Eye exam: Present: normal appearance - ENT ENT exam: Present: mucous membranes moist - Neck Neck exam: Present: normal inspection - Respiratory Respiratory exam: Present: normal lung sounds bilaterally. Absent: respiratory distress - Cardiovascular Cardiovascular Exam: Present: regular rate, normal rhythm. Absent: systolic murmur, diastolic murmur, rubs, gallop - GI/Abdominal GI/Abdominal exam: Present: soft, normal bowel sounds - Extremities Exam Extremities exam: Present: normal inspection - Back Exam Back exam: Present: normal inspection - Neurological Exam Neurological exam: Present: alert, oriented X3 - Psychiatric Psychiatric exam: Present: normal affect, normal mood - Skin Skin exam: Present: warm, dry, intact, normal color. Absent: rash ED Course Vital Signs 03/01/18 03/01/18 04:53 05:09 Temperature 98.3 F 98.3 F Pulse Rate 70 72 Respiratory 18 Rate Blood Pressure 158/96 158/96 O2 Sat by Pulse 99 99 Oximetry ED Medical Decision Making - Lab Data Result diagrams: 03/01/18 05:20 03/01/18 05:20 - Radiology Data Final impression for the ultrasound OB shows a viable single IUP approximately 6 weeks and does have a heart rate of 105. There is a large subchorionic hemorrhage present. To 2.4 cm right ovarian cyst present as well. Critical care attestation.: If time is entered above; I have spent that time in minutes in the direct care of this critically ill patient, excluding procedure time. ED Disposition Clinical Impression: Threatened miscarriage Subchorionic bleed Qualifiers: Fetus number: single or unspecified fetus Disposition: DC-01 TO HOME OR SELFCARE Is pt being admited?: No Does the pt Need Aspirin: No Condition: Stable Instructions: Threatened Miscarriage (ED) Referrals: JEREMY ECHEVERRIA MD [Staff Physician] - 3-5 Days Time of Disposition: 08:53
--- NOTE | 2018-03-01 08:44 | Ultrasound Report ---
ULTRASOUND OB LESS THAN 14 WEEKS STATUS HISTORY: Abdominal pain, positive test. COMPARISON: No relevant comparison. TECHNIQUE: Transabdominal ultrasound with color doppler interrogation. FINDINGS: Uterus: The uterus is anteverted and measures 9 x 6 x 6 cm. No uterine masses appreciated the cervix is obscured. Endometrium: An intrauterine is identified with heart rate measuring 105 beats per minute. Cana-rump length measures 2.6 mm which correlates with a 5 week, 6 day . A large subchorionic hemorrhage is identified along the left lateral border of the gestational sac. Right ovary: 3.8 x 2.9 x 3.0 cm. A 2.4 cm cyst is identified in the right ovary. Left ovary: 2.4 x 1.6 x 2.0 cm. No focal abnormality. No pelvic fluid or mass is identified. Normal color doppler interrogation. IMPRESSION: Viable, single intrauterine as described. Large subchorionic hemorrhage. 2.4 cm right ovarian cyst.
== END 2018-03-01 09:12 | disposition home or self-care (01) ==
LOC: ED 04:53
DX: O20.0 Threatened abortion (principal); O99.511 Diseases of the respiratory system complicating pregnancy, first trimester; J45.909 Unspecified asthma, uncomplicated; Z3A.01 Less than 8 weeks gestation of pregnancy; Z91.013 Allergy to seafood
CPT/HCPCS: 36415; 76801; 80053; 81001; 81025; 84702; 85025

== ENCOUNTER 2018-10-27 10:12 | Inpatient (IN) | payer MEDICAID ==
[2018-10-27] MEDS ORDERED: BRETHINE IVP PRN (11:06)
[2018-10-27] MEDS ORDERED: XYLOCAINE 2% INFILTRATI ONE (11:06)
[2018-10-27] MEDS ORDERED: MINERAL OIL PO PRN (11:06)
[2018-10-27] MEDS ORDERED: ZOFRAN IV PRN (11:06)
[2018-10-27] MEDS ORDERED: SUBLIMAZE IV PRN (11:06)
[2018-10-27] MEDS ORDERED: BRETHINE SUB-Q PRN (11:06)
--- NOTE | 2018-10-27 11:13 | History and Physical Report ---
History of Present Illness Date of examination: 10/27/18 Chief complaint: painful ctx History of present illness: EDC 09/28/19 Past History : 5 Term Births: 4 Premature Births: 0 Living Children: 4 Para: 4 Mult. Births: 0 Prev : 0 Prev. attempt? 0 Aborta: 0 Elect. Ab: 0 Spont. Ab: 0 Ectopics: 0 # 1 Delivery date: 2005 Weeks Gestation: term labor: no Delivery type: Anesthesia type: none Delivery location: [facility] Sex: Male weight: 8#1 # 2 Delivery date: 2006 Weeks Gestation: term labor: no Delivery type: Anesthesia type: none Delivery location: [facility] Infant Sex: Male weight: 7#1 # 3 Delivery date: 2008 Weeks Gestation: term labor: no Delivery type: Anesthesia type: none Delivery location: [facility] Infant Sex: Male weight: 6#0 # 4 Delivery date: 02/13/2017 Weeks Gestation: 40.3 Delivery type: Vaginal Anesthesia type: none Delivery location: [facility] Infant Sex: male weight: 7.63 Comments: none Past Medical History: Reviewed history from 09/15/2016 and no changes required: Negative Past Medical History Past Surgical History: Reviewed history from 09/15/2016 and no changes required: negative Past Medical History Anesthesia Complications: negative Anemia: negative Autoimmune Disorder: negative Bleeding Disorder: negative Blood Transfusions: negative Breast Disease: negative Diabetes: negative Heart Disease: negative Hypertension: negative Hepatitis/Liver Disease: negative Kidney Disease/UTI: negative Neurologic/Epilepsy/Migraines: negative Phlebitis/Varicosities: negative Psychiatric: negative Pulmonary Disease/Asthma: negative Thyroid Disease: negative Hospitalizations: negative Surgery (Non-sheet turner): negative Abnormal PAP: positive Infection History Hx of STD: none HIV Risk Eval: low risk Hepatitis B Risk Eval: low risk Personal hx. of genital herpes: no Partner hx. of genital herpes: no Rash, Viral, or Febrile illness since last LMP? no Varicella/Chicken Pox Status: Previous Disease Genetic History Congenital Heart Defect: Mom: no Dad: no Omkar Disease: Mom: no Dad: no Thalassemia Mom: no Dad: no Neural Tube Defect Mom: no Dad: no Down's Syndrome Mom: no Dad: no Girma-Sachs Mom: no Dad: no Sickle Cell Disease/Trait Mom: no Dad: no Hemophilia Mom: no Dad: no Muscular Dystrophy Mom: no Dad: no Cystic Fibrosis Mom: no Dad: no Giles Chorea Mom: no Dad: no Mental Retardation Mom: no Dad: no Fragile X Mom: no Dad: no Other Genetic/Chromosomal Disorder Mom: no Dad: no Child w/other defect Mom: no Dad: no Enviromental Exposures Xray Exposure: no Medication, drug, or alcohol use since LMP: no Chemical/Other Exposure: no Exposure to Cat Liter: no Hx of Parvovirus (Fifth Disease): no Occupational Exposure to Children: none Active Medications (reviewed today): PROMETHAZINE HCL 25 MG RECTAL SUPPOSITORY (PROMETHAZINE HCL) 1 per rectum q6hrs prn FERROUS SULFATE 325 (65 Fe) MG ORAL TABLET (FERROUS SULFATE) 1 po bid VITAMINS () Current Allergies (reviewed today): No known allergies Past History Past Medical History: other (see HPI) Past Surgical History: other (see HPI) 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 (see HPI) Family/Genetic History: other (see HPI) - Obstetrical History Expected Date of Delivery: 10/29/18 Actual Gestation: 39 Week(s) 5 Day(s) : 5 Para: 4 Hx # Term Pregnancies: 4 Number of Pregnancies: 0 Spontaneous Abortions: 0 Number of Living Children: 4 Medications and Allergies Allergies Allergy/AdvReac Type Severity Reaction Status Date / Time shellfish derived AdvReac Swelling Verified 03/01/18 05:12 Home Medications Medication Instructions Recorded Confirmed Last Taken Type Lidocain2.5%/Prilocai2.5% [Emla] 5 gm TP ONCE #1 tube 02/13/17 Unknown Rx Ciprofloxacin HCl [Ciprofloxacin 500 mg PO Q12H #20 tab 07/27/17 Unknown Rx TAB] Meloxicam 7.5 mg PO QAM #7 tablet 07/27/17 Unknown Rx Ondansetron [Zofran Odt] 4 mg PO Q8H #12 tab.rapdis 07/27/17 Unknown Rx Nitrofurantoin [place]/M-Cryst 100 mg PO Q12HR 5 Days #10 capsule 05/18/18 Unknown Rx [Macrobid CAP] Vit No.130/Iron/Folic 1 each PO QAM 30 Days #30 tablet 05/18/18 Unknown Rx [ Tablet] Active Meds: Active Medications Ephedrine Sulfate (Ephedrine Sulfate) 10 mg IV Q2M PRN PRN Reason: Hypotension Fentanyl (Sublimaze) 100 mcg IV Q2H PRN PRN Reason: Labor Pain Ampicillin Sodium (Polycillin/Ns 2 Gm/100 Ml) 2 gm in 100 mls @ 100 mls/hr IV ONCE ONE; Protocol Stop: 10/27/18 12:05 Ampicillin Sodium (Ampicillin/Ns 1 Gm/50 Ml) 1 gm in 50 mls @ 100 mls/hr IV Q4HR MAYTE; Protocol Lactated Ringer's (Lactated Ringers) 1,000 mls @ 125 mls/hr IV DIRECT MAYTE Oxytocin/Sodium Chloride (Pitocin/Ns 20 Unit/1000ml Drip) 20 units in 1,000 mls @ 125 mls/hr IV DIRECT MAYTE Lidocaine (Xylocaine 2%) 20 ml INFILTRATI ONCE ONE Stop: 10/27/18 11:07 Mineral Oil (Mineral Oil) 30 ml PO QHS PRN PRN Reason: Constipation Ondansetron HCl (Zofran) 4 mg IV Q8H PRN PRN Reason: Nausea And Vomiting Terbutaline Sulfate (Brethine) 0.25 mg SUB-Q ONCE PRN PRN Reason: Hyperstimulation/Hypertonicity Terbutaline Sulfate (Brethine) 0.25 mg IVP ONCE PRN PRN Reason: Hyperstimulation/Hypertonicity Review of Systems All systems: negative - Vital Signs Vital signs: Vital Signs Pulse BP 81 141/77 10/27/18 10:46 10/27/18 10:46 Temp Pulse Resp BP Pulse Ox 98.8 F 81 15 141/77 10/27/18 10:57 10/27/18 10:57 10/27/18 10:57 10/27/18 10:57 - Physical Exam Breasts: Positive: normal Cardiovascular: Regular rate Lungs: Positive: Clear to auscultation, Normal air movement Abdomen: Positive: normal appearance, soft Genitourinary (Female): Positive: normal external genitalia, normal perenium Vulva: both: normal Vagina: Positive: normal moisture Uterus: Positive: normal size, normal contour Anus/Rectum: Positive: normal perianal skin Extremities: Positive: normal Deep Tendon Reflex Grade: Normal +2 - Obstetrical FHR: category 1 Uterine Contraction Monitor Mode: External Cervical Dilatation: 4 (BBOW) Uterine Contraction Pattern: Regular Uterine Tone Measurement Phase: Contraction Uterine Contraction Intensity: Moderate Results Result Diagrams: 10/27/18 11:50 All other labs normal. Assessment and Plan 33y/o @ 39+5 weeks, presents to triage in active labor. GBS results nor yet received d/t patient missing appointments from 33 weeks to 39 weeks. Will start antibiotics. Orders in EMR. Anticipate . - Patient Problems (1) GBS screening not performed Current Visit: Yes Status: Acute (2) 39 weeks gestation of Current Visit: Yes Status: Acute (3) Active labor at term Current Visit: Yes Status: Acute
[2018-10-27] MEDS ORDERED: LACTATED RINGERS 1,000 ML IV SCH (12:00)
[2018-10-27] MEDS ORDERED: PITOCin/NS 20 UNIT/1000ML DRIP 20 UNITS/1,000 ML BAG IV SCH ×2 (12:00→19:27)
[2018-10-27] MEDS ORDERED: AMPICILLIN/NS 2 GM/100 ML 2 GM/100 ML BAG IV ONE (12:00)
[2018-10-27 12:30] LABS: Hematocrit 33.5 % (30.3-42.9); Hemoglobin 11.4 gm/dl (10.1-14.3); Mean Corpuscular HGB Conc 34 % (30-34); Mean Corpuscular Volume 90 fl (79-97); Platelet Count 267 K/mm3 (140-440); Red Blood Count 3.73 M/mm3 (3.65-5.03)
--- NOTE | 2018-10-27 12:46 | Progress Note ---
Assessment and Plan plan of care reviewed with patient, pt would like AROM. SVE now /-1 - BBOW AROM'd small amount of clear fluid noted. IVF open for bolus, pt desires epidural. - Patient Problems (1) GBS screening not performed Current Visit: Yes Status: Acute (2) 39 weeks gestation of Current Visit: Yes Status: Acute (3) Active labor at term Current Visit: Yes Status: Acute Subjective - Subjective Date of service: 10/27/18 Principal diagnosis: IUP @ 39+5, Laboring Interval history: EDC 09/28/19 Past History : 5 Term Births: 4 Premature Births: 0 Living Children: 4 Para: 4 Mult. Births: 0 Prev : 0 Prev. attempt? 0 Aborta: 0 Elect. Ab: 0 Spont. Ab: 0 Ectopics: 0 # 1 Delivery date: 2005 Weeks Gestation: term labor: no Delivery type: Anesthesia type: none Delivery location: [facility] Infant Sex: Male weight: 8#1 # 2 Delivery date: 2006 Weeks Gestation: term labor: no Delivery type: Anesthesia type: none Delivery location: [facility] Sex: Male weight: 7#1 # 3 Delivery date: 2008 Weeks Gestation: term labor: no Delivery type: Anesthesia type: none Delivery location: [facility] Infant Sex: Male weight: 6#0 # 4 Delivery date: 02/13/2017 Weeks Gestation: 40.3 Delivery type: Vaginal Anesthesia type: none Delivery location: [facility] Infant Sex: male weight: 7.63 Comments: none Past Medical History: Reviewed history from 09/15/2016 and no changes required: Negative Past Medical History Past Surgical History: Reviewed history from 09/15/2016 and no changes required: negative Past Medical History Anesthesia Complications: negative Anemia: negative Autoimmune Disorder: negative Bleeding Disorder: negative Blood Transfusions: negative Breast Disease: negative Diabetes: negative Heart Disease: negative Hypertension: negative Hepatitis/Liver Disease: negative Kidney Disease/UTI: negative Neurologic/Epilepsy/Migraines: negative Phlebitis/Varicosities: negative Psychiatric: negative Pulmonary Disease/Asthma: negative Thyroid Disease: negative Hospitalizations: negative Surgery (Non-voice intercept technician): negative Abnormal PAP: positive Infection History Hx of STD: none HIV Risk Eval: low risk Hepatitis B Risk Eval: low risk Personal hx. of genital herpes: no Partner hx. of genital herpes: no Rash, Viral, or Febrile illness since last LMP? no Varicella/Chicken Pox Status: Previous Disease Genetic History Congenital Heart Defect: Mom: no Dad: no Omkar Disease: Mom: no Dad: no Thalassemia Mom: no Dad: no Neural Tube Defect Mom: no Dad: no Down's Syndrome Mom: no Dad: no Girma-Sachs Mom: no Dad: no Sickle Cell Disease/Trait Mom: no Dad: no Hemophilia Mom: no Dad: no Muscular Dystrophy Mom: no Dad: no Cystic Fibrosis Mom: no Dad: no [place] Chorea Mom: no Dad: no Mental Retardation Mom: no Dad: no Fragile X Mom: no Dad: no Other Genetic/Chromosomal Disorder Mom: no Dad: no Child w/other defect Mom: no Dad: no Enviromental Exposures Xray Exposure: no Medication, drug, or alcohol use since LMP: no Chemical/Other Exposure: no Exposure to Cat Liter: no Hx of Parvovirus (Fifth Disease): no Occupational Exposure to Children: none Active Medications (reviewed today): PROMETHAZINE HCL 25 MG RECTAL SUPPOSITORY (PROMETHAZINE HCL) 1 per rectum q6hrs prn FERROUS SULFATE 325 (65 Fe) MG ORAL TABLET (FERROUS SULFATE) 1 po bid VITAMINS () Current Allergies (reviewed today): No known allergies Patient reports: movement normal, contractions Objective - Vital Signs Vital Signs: Vital Signs - 12hr 10/27/18 10/27/18 10/27/18 10:46 10:57 12:34 Temperature 98.8 F Pulse Rate 81 81 85 Respiratory 15 Rate Blood Pressure 141/77 120/65 Blood Pressure 141/77 [Right] 10/27/18 12:38 Temperature Pulse Rate Respiratory Rate Blood Pressure Blood Pressure 128/69 [Right] - Exam Breasts: normal Cardiovascular: Regular rate Lungs: Clear to auscultation, Normal air movement Abdomen: Present: normal appearance, soft Vulva: both: normal Uterus: Present: normal FHR: auscultation normal, category 1 Uterine Contraction Monitor Mode: External Cervical Dilatation: 5 (AROM - clear) Cervical Effacement Percentage: 80 station: -1 Uterine Contraction Pattern: Regular Uterine Tone Measurement Phase: Contraction Uterine Contraction Intensity: Moderate - Labs Labs: Laboratory Results - last 24 hr 10/27/18 11:50 WBC 9.5 RBC 3.73 Hgb 11.4 Hct 33.5 MCV 90 MCH 31 MCHC 34 RDW 14.0 Plt Count 267
[2018-10-27] MEDS ORDERED: PITOCin/NS 30 UNIT/500ML 30 UNITS/500 ML BAG IV SCH (13:45)
--- NOTE | 2018-10-27 14:19 | Anesthesia Consultation ---
Anesthesia Consult and Med Hx Date of service: 10/27/18 - Airway Anesthetic Teeth Evaluation: Good ROM Head & Neck: Adequate Mental/Hyoid Distance: Adequate Mallampati Class: Class III Intubation Access Assessment: Possibly Difficult - Pulmonary Exam CTA: Yes - Cardiac Exam Cardiac Exam: RRR - Pre-Operative Health Status ASA Pre-Surgery Classification: ASA2 Proposed Anesthetic Plan: Epidural, Spinal - Pulmonary Hx Smoking: No Hx Asthma: Yes (CARRIES INHALER) COPD: No Hx Pneumonia: No - Cardiovascular System Hx Hypertension: No - Central Nervous System Hx Seizures: No Hx Psychiatric Problems: No - Endocrine Hx Renal Disease: No Hx End Stage Renal Disease: No Hx Hypothyroidism: No Hx Hyperthyroidism: No - Hematic Hx Anemia: No Hx Sickle Cell Disease: No - Other Systems Hx Alcohol Use: No
[2018-10-27] MEDS ORDERED: NARCAN 2 MG/2 ML IV PRN (14:20)
--- NOTE | 2018-10-27 14:20 | Anesthesia Day of Surgery ---
Anesthesia Day of Surgery - Day of Surgery Patient Examined: Yes Patient H&P Reviewed: Yes Patient is NPO: Yes
[2018-10-27] MEDS ORDERED: fentaNYL-BUPIV 2 MCG/ML-0.125% 200 MCG/100 ML BAG EPIDURAL SCH (15:00)
[2018-10-27] MEDS ORDERED: AMPICILLIN/NS 1 GM/50 ML 1 GM/50 ML BAG IV SCH (15:07)
[2018-10-27] MEDS ORDERED: XYLOCAINE MPF 2% ONE (15:20)
--- NOTE | 2018-10-27 16:37 | Procedure Note ---
OB Delivery Note - Delivery Date of Delivery: 10/27/18 Front Desk Team Member: MIREYA QUINONEZ (SULLY Ha present at delivery) Estimated blood loss: 300cc - Vaginal Delivery position: OA ([place]APARRO) Intrapartum events: none Delivery induction: none Delivery augmentation: rupture of membranes, pitocin Delivery monitor: external FHT, external uterine Route of delivery: Delivery placenta: spontaneous Episiotomy: none Delivery laceration: none Anesthesia: epidural Delivery comments: of viable male over intact perineum. placed on mothers abdomen. Tactile stimulation produces vigorous cry. Cord clamped x2 once pulsation ceased. FOC cut cord. Cord blood collected and removed from field by RN. remains skin to skin with mother. Placenta delivered spontaneously complete and intact. Pitocin to IV. No laceration to repair. EBL 300. Infant weight 6#12. Apgars 8/9. and mother remain in LRD in stable condition. - Infant A at 1 minute: 8 at 5 minutes: 9 Gender: Male (6#12)
[2018-10-27] MEDS ORDERED: SODIUM CHLORIDE FLUSH SYRINGE 10 ML IV NR (19:27)
[2018-10-27] MEDS ORDERED: LANSINOH TP PRN (19:27)
[2018-10-27] MEDS ORDERED: MILK OF MAGNESIA PO PRN (19:27)
[2018-10-27] MEDS ORDERED: TUCKS PAD TP PRN (19:27)
[2018-10-27] MEDS ORDERED: PHENERGAN PO PRN (19:27)
[2018-10-27] MEDS ORDERED: BENADRYL PO PRN (19:27)
[2018-10-27] MEDS ORDERED: DULCOLAX PR PRN (19:27)
[2018-10-27] MEDS: IBUPROFEN PO SCH (19:49)
[2018-10-27] MEDS ORDERED: TORADOL IM ONE (20:42)
[2018-10-27] MEDS: TYLENOL PO PRN (21:24)
[2018-10-28] MEDS: TYLENOL PO PRN (01:49)
[2018-10-28] MEDS: IBUPROFEN PO SCH ×2 (01:49→12:01)
[2018-10-28 07:28] LABS: Hematocrit 29.9 % (30.3-42.9); Hemoglobin 10.1 gm/dl (10.1-14.3)
--- NOTE | 2018-10-28 09:33 | Discharge Summary ---
Providers - Providers Date of Admission: 10/27/18 11:15 Date of discharge: 10/28/18 (alexandre desires discharge today) Attending physician: JEREMY ECHEVERRIA Primary care physician: JEREMY ECHEVERRIA Hospitalization Reason for admission: labor Condition: Good Pertinent studies: post delivery h&H 10.129.9 Procedures: Hospital course: uncomplicated labor, delivery, and course Disposition: DC-01 TO HOME OR SELFCARE Core Measure Documentation - Palliative Care Palliative Care/ Comfort Measures: Not Applicable - Core Measures Any of the following diagnoses?: none Exam - Constitutional Vitals: Temp Pulse Resp BP Pulse Ox 97.8 F 76 18 132/88 99 10/28/18 08:06 10/28/18 08:06 10/28/18 08:06 10/28/18 08:06 10/27/18 19:10 General appearance: Present: no acute distress, well-nourished - EENT Eyes: Present: PERRL ENT: hearing intact, clear oral mucosa - Neck Neck: Present: supple, normal ROM - Respiratory Respiratory effort: normal Respiratory: bilateral: CTA - Cardiovascular Heart Sounds: Present: S1 & S2. Absent: rub, click - Extremities Extremities: pulses symmetrical, No edema Peripheral Pulses: within normal limits - Abdominal General gastrointestinal: Present: soft, non-tender, non-distended, normal bowel sounds Female genitourinary: Present: normal - Integumentary Integumentary: Present: clear, warm, dry - Musculoskeletal Musculoskeletal: gait normal, strength equal bilaterally - Psychiatric Psychiatric: appropriate mood/affect, intact judgment & insight - Neurologic Neurologic: CNII-XII intact, moves all extremities - Additional findings Additional findings: Fundus firm. Bleeding scant. Breasts are feeling well with . Plan Activity: no restrictions Diet: regular Follow up with: JEREMY ECHEVERRIA MD [Primary Care Provider] - 7 Days (Congratulations! Please call [phone] to schedule your baby boy's circumcision appointment in 1 week and your appointment for 4 weeks. Bring EMLA cream with you to your son's appointment and await further instructions from diploma medical assistant. ) Prescriptions: Ibuprofen [Motrin 800 MG tab] 800 mg PO Q8HR PRN #30 tablet PRN Reason: Pain Lidocain2.5%/Prilocai2.5% [Emla] 5 gm TP ONCE PRN #1 tube PRN Reason: Pain
[2018-10-28] MEDS ORDERED: PRENATAL VITAMIN PO SCH (10:00)
[2018-10-28] MEDS ORDERED: BOOSTRIX IM ONE (16:20)
[2018-10-28 17:11] VITALS: BP 140/80
== END 2018-10-28 19:00 | disposition home or self-care (01) | DRG 775 ==
LOC: TRG 10:12 → LD 11:15 → OB 18:57
PROVIDERS: ADMIT Obstetrics & Gynecology; ATTEND Obstetrics & Gynecology
PROC: 10E0XZZ Delivery of Products of Conception, External Approach (ICD-10-PCS; principal; 2018-10-27)
PROC: 3E0234Z Introduction of Serum, Toxoid and Vaccine into Muscle, Percutaneous Approach (ICD-10-PCS; 2018-10-27)
PROC: 3E0R3BZ Introduction of Anesthetic Agent into Spinal Canal, Percutaneous Approach (ICD-10-PCS; 2018-10-27)
PROC: 00HU33Z Insertion of Infusion Device into Spinal Canal, Percutaneous Approach (ICD-10-PCS; 2018-10-27)
DX: O99.52 Diseases of the respiratory system complicating childbirth (principal); Z3A.39 39 weeks gestation of pregnancy; Z37.0 Single live birth; Z23 Encounter for immunization; Z91.013 Allergy to seafood; J45.909 Unspecified asthma, uncomplicated
CPT/HCPCS: 36415; 59200; 85014; 85018; 85027; 86592; 86850; 86900; 86901; G0378; J0290; J1885; J2590; J3010; J7120

== ENCOUNTER 2019-01-18 17:42 | Emergency (ER) | payer MEDICAID, OTHER ==
[2019-01-18] MEDS ORDERED: ULTRAM PO ONE (17:53)
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
[2019-01-18] MEDS ORDERED: IBUPROFEN PO ONE (20:07)
--- NOTE | 2019-01-18 20:08 | Cat Scan Report ---
PROCEDURE: CT CERVICAL SPINE WO CON HISTORY: midline c spine ttp FINDINGS: Unenhanced CT of the cervical spine was performed and data was reformatted into sagittal an d coronal planes. These images demonstrate no fracture or malalignment of the cervical spine. The prevertebral soft tis sues are within normal limits. The pulmonary apices appear clear. There is a right lobe thyroid nodule, 0.4 cm. IMPRESSION: No fracture or malalignment of the cervical spine This document is electronically signed by Steven Rangel MD., January 18 2019 08:06:36 PM ET
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
[2019-01-18 20:16] VITALS: BP 129/81
== END 2019-01-18 20:35 | disposition home or self-care (01) ==
LOC: ED 17:42
DX: M54.2 Cervicalgia (principal); M54.9 Dorsalgia, unspecified; J45.909 Unspecified asthma, uncomplicated; V49.49XA Driver injured in collision with other motor vehicles in traffic accident, initial encounter; Y93.89 Activity, other specified; Y92.89 Other specified places as the place of occurrence of the external cause; Y99.8 Other external cause status
CPT/HCPCS: 36415; 72100; 72125; 84703